=== PATIENT | male | born 1970 | race Caucasian/White ===

== ENCOUNTER → 2019-04-24 | Outpatient (CLI) | payer OTHER ==
[2019-04-24 10:43] LABS: Basophils # (A) 0.1 k/uL (0-0.2); Basophils % (A) 1 %; Eosinophils # (A) 0.2 k/uL (0-0.7); Eosinophils % (A) 2 %; HCT 48.9 % (39.0-53.0); HGB 15.9 gm/dL (13.0-17.5); Lymphocytes # (A) 2.5 k/uL (1.0-4.8); Lymphocytes % (A) 33 %; MCH 29.7 pg (25.0-35.0); MCHC 32.6 g/dL (31.0-37.0); MCV 91.2 fL (80.0-100.0); Mean Platelet Volume 6.6; Monocytes # (A) 0.5 k/uL (0-1.0); Monocytes % (A) 6 %; Neutrophils # (A) 4.3 k/uL (1.3-7.7); Neutrophils % (A) 56 %; Platelet Count 334 k/uL (150-450); RBC 5.36 m/uL (4.30-5.90); RDW 12.8 % (11.5-15.5); WBC 7.7 k/uL (3.8-10.6)
[2019-04-24 16:14] LABS: African American GFR (CKD) 124.2 (60.0-200.0); Anion Gap 10.1 mmol/L (4.00-12.00); BUN/Creat Ratio 13.75 Ratio (12.00-20.00); Calcium 9.6 mg/dL (8.7-10.3); Carbon Dioxide 26.9 mmol/L (21.6-31.8); Chol/HDL Ratio 5.18; LDL Cholesterol,Calculated 175.2 mg/dL (0.0-131.0); Non-African American GFR(CKD) 107.1 (60.0-200.0); Potassium 4.2 mmol/L (3.5-5.5); VLDL Calculation 29.8 mg/dL (5.00-40.00)
== END | disposition home or self-care (01) ==
LOC: LABWHC1 09:50
PROVIDERS: ATTEND Family Medicine
DX: Z00.00 Encounter for general adult medical examination without abnormal findings (principal); I10 Essential (primary) hypertension
CPT/HCPCS: 36415; 80048; 80061; 84450; 84460; 85025

== ENCOUNTER → 2021-05-08 | Outpatient (CLI) | payer OTHER ==
--- NOTE | 2021-05-08 13:39 | ECHOS ---
STRESS ECHOCARDIOGRAM DATE OF STUDY: 05/08/2021 INDICATIONS: Chest pain. BASELINE HEART RATE: 79 BASELINE BLOOD PRESSURE: 136/77. MAXIMUM HEART RATE: 173 MAXIMUM BLOOD PRESSURE: 193/75 85% MPHR: 146 100% MPHR: 172 METS: 9.3 MAXIMUM STAGE REACHED: IV TOTAL EXERCISE TIME: 11 min CLINICAL INFORMATION: STRESS DATA: Pre-testing physical examination showed a heart rate of 79, pressure 136/77 mmHg. Baseline EKG showed sinus mechanism. The patient exercised on the treadmill according to Hugo protocol for a total of 11 minutes and achieved 9.3 METS. Max heart rate was 173, which is about 120% of maximum predicted heart rate and maximum blood pressure was 193/75 mmHg. Clinically the patient did not have any symptoms. The EKG did not show any significant ST or T-wave abnormalities concerning for ischemia. Echocardiogram images from parasternal long axis view, parasternal short axis view, apical 4-chamber and apical 2-chamber views were obtained as the baseline images at the peak of the heart rate as well as on recovery. The echocardiogram images showed good augmentation in the left ventricular systolic function without any evidence of wall motion abnormalities concerning for ischemia. CONCLUSION: 1. Excellent exercise tolerance. 2. Normal EKG in response to exercise. 3. Normal echocardiogram in response to exercise. 4. Essentially normal stress echo for the patient. MMODL / IJN: [id number] /
== END | disposition home or self-care (01) ==
LOC: RADNMMAIN 09:04
PROVIDERS: ATTEND Family Medicine
DX: R07.9 Chest pain, unspecified (principal)
CPT/HCPCS: 93351

== ENCOUNTER → 2024-09-26 | Outpatient (CLI) | payer OTHER ==
--- NOTE | 2024-09-26 16:59 | P.SLEEP ---
History of Present Illness H&P Date: 09/26/24 53-year-old male patient presenting to the sleep center due to concerns of sleep apnea. The patient has excessive hypersomnia and sleepiness and his current Carmine score is at 22. 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 The patientnd [place] has loud snoring. He quits breathing on multiple occasions at night. He is unable to sleep on his back. He sleeps on his side and his sleep becomes more fragmented while sleeping on his back. He wakes up in the morning not refreshed and he feels excessively tired and sleepy. 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 He hears himself snoring. He goes to bed at around 9 PM and gets out of bed at 4:30 AM in the morning. On weekends, he sleeps till 7 or 8 AM in the morning. He is a mouth breather. He has occasional dry mouth. He wakes up frequently gasping for air. He also has some nocturia where he wakes up at least twice in the middle of the night to urinate. No recent weight gain or weight loss. No sleep paralysis. No hallucinations. No cataplexy. No anxi ety. No depression. He has hypertension and his blood pressure has been difficult to control and the patient is on 3 different antihypertensive medications for now. He drinks 2 cups of coffee in the morning. He drinks several drinks up to 5 after coming back from work. He drinks beer and whiskey. He has undergone previous tonsillectomy. No history of head trauma. No seizure activity. No congestion or heart failure. No atrial fibrillation. Review of Systems Constitutional: Reports daytime sleepiness, Reports fatigue, Reports lethargy Eyes: denies as per HPI, denies blurred vision, denies bulging eye, denies decreased vision, denies diplopia, denies discharge, denies dry eye, denies irritation, denies itching, denies pain, denies photophobia, denies loss of peripheral vision, denies loss of vision, denies tunnel vision/blind spots Ears: deny: decreased hearing, ear discharge, earache, tinnitus Ears, nose, mouth and throat: Reports as per HPI Breasts: absent: as per HPI, gynecomastia Cardiovascular: Reports as per HPI Respiratory: Reports snoring Gastrointestinal: Reports as per HPI Genitourinary: Reports as per HPI Musculoskeletal: absent: ankle pain, ankle stiffness, ankle swelling, as per HPI, elbow pain, elbow stiffness, elbow swelling, foot pain, foot stiffness, foot swelling, hand pain, hand stiffness, hand swelling, hip pain, hip stiffness, hip swelling, knee pain, knee stiffness, knee swelling, shoulder pain, shoulder stiffness, shoulder swelling, wrist pain, wrist stiffness, wrist swelling Integumentary: Reports as per HPI Neurological: Reports as per HPI Psychiatric: Reports change in sleep habits, Reports hypersomnia, Reports sleep disturbances Hematologic/Lymphatic: Reports as per HPI Allergic/Immunologic: Reports as per HPI Past Medical History Past Medical History: Hyperlipidemia, Hypertension Past Surgical History: Hernia Repair, Tonsillectomy Medications and Allergies Home Medications and Allergies Comment(s): Hydrochlorothiazide, Celexa, losartan, Prilosec and amlodipine. Exact doses are not known. Physical Exam Blood pressure is 137/87, pulse is 84, respirations 16, weight is 229, body mass index is 34.8 pulse ox on room air is 97%. height is 5 feet and 8 inches. The patient appeared well nourished and normally developed. Vital signs as documented. Head exam is unremarkable. No scleral icterus or corneal arcus noted. Neck is without jugular venous distension, thyromegaly, or carotid bruits. Carotid upstrokes are brisk bilaterally. Mallampati class I Lungs are clear to auscultation and percussion. Cardiac exam reveals the PMI to be normally sized and situated. Rhythm is regular. First and second heart sounds normal. No murmurs, rubs or gallops. Abdominal exam reveals normal bowel sounds, no masses, no organomegaly and no aortic enlargement. Extremities are nonedematous and both femoral and pedal pulses are normal. Examination of the skin revealed no evidence of significant rashes, suspicious appearing nevi or other concerning lesions. Neurologically, the patient is awake and alert and the patient does not have any focal neurological deficit. Cranial nerves are essentially intact. Assessment and Plan Plan: Chronic hypersomnia with an Carmine score of 22, high clinical suspicion for obstructive sleep apnea Loud snoring. The patient had undergone previous tonsillectomy. Sleep fragmentation Obesity with a BMI of 34.8 Alcohol consumption in the order of 5-8 drinks (beer and whiskey) Hypertension, currently on 3 different antihypertensive medications. Hyperlipidemia Acid reflux Plan High clinical suspicion for obstructive sleep apnea Avoid driving especially when feeling drowsy or sleepy Avoid any sleep insufficiency Maintain good sleep hygiene measures Maintain regular sleep schedule and extend sleep hours is much as possible to an average of 8 to 9 hours/day Avoid alcohol drinking at least 3 hours prior to going to bed Encourage weight loss Monitor blood pressure Proceed with a screening polysomnography and treat the patient accordingly. Sleep Note - Sleep Note Sleep Note: Temperature: Pulse Rate: Respiratory Rate: Blood Pressure: SpO2: Height: Weight: BMI: Neck Circumference:
== END ==
LOC: 3 N SLEEP 15:49
PROVIDERS: ATTEND Internal Medicine Critical Care Medicine
DX: G47.33 Obstructive sleep apnea (adult) (pediatric) (principal); G47.10 Hypersomnia, unspecified; I10 Essential (primary) hypertension; E78.5 Hyperlipidemia, unspecified; K21.9 Gastro-esophageal reflux disease without esophagitis; R06.83 Snoring; E66.9 Obesity, unspecified; Z68.34 Body mass index [BMI] 34.0-34.9, adult
CPT/HCPCS: 99211

== ENCOUNTER 2024-10-11 19:56 | Outpatient (CLI) | payer OTHER ==
--- NOTE | 2024-10-18 22:20 | P.PCN ---
Date of Procedure: 10/11/24 Operative Findings: Polysomnography report Date of service is 10/11/2024 History 53-year-old male patient presenting to the sleep center due to concerns of sleep apnea. The patient has excessive hypersomnia and sleepiness and his current Houston score is at 22. 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 He has loud snoring. He quits breathing on multiple occasions at night. He is unable to sleep on his back. He sleeps on his side and his sleep becomes more fragmented while sleeping on his back. He wakes up in the morning not refreshed and he feels excessively tired and sleepy. 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 He hears himself snoring. He goes to bed at around 9 PM and gets out of bed at 4:30 AM in the morning. On weekends, he sleeps till 7 or 8 AM in the morning. He is a mouth breather. He has occasional dry mouth. He wakes up frequently gasping for air. He also has some nocturia where he wakes up at least twice in the middle of the night to urinate. No recent weight gain or weight loss. No sleep paralysis. No hallucinations. No cataplexy. No anxiety. No depression. He has hypertension and his blood pressure has been difficult to control and the patient is on 3 different antihypertensive medications for now. He drinks 2 cups of coffee in the morning. He drinks several drinks up to 5 after coming back from work. He drinks beer and whiskey. He has undergone previous tonsillectomy. No history of head trauma. No seizure activity. No congestion or heart failure. No atrial fibrillation. Physical findings Weight is 229 with a BMI of 34.8 Technical description The patient was studied using a standard complex polysomnography protocol that included recording of the Lead II EKG, Central, occipital and frontal EEG, right and left outer canthus EOG, submental EMG, right and left anterior tibialis EMG, respiratory airflow by thermocouple and or pressure/flow transducer, respiratory efforts by abdominal and thoracic PVDF belts, oxygen saturation by cable oximetry. Position by observation synchronized the PSG. Equipment used: [employer]. Sleep architecture The total recording duration was for 23.0 minutes. The total sleep time was 353 minutes. The wake after sleep onset time was 29 minutes. The overall sleep efficiency was 83.5%. The latency to sleep onset was 34 minutes and the latency to REM sleep was 88.5 minutes. The total arousal index was 8.7. The sleep architecture was characterized by 70.6% stage I, 49.7% stage II, 0.4% stage III, and a total of 32.3% REM sleep Sleep respiratory urinalysis The patient had a total of 32 obstructive events of which 0 were obstructive apneas, 0 were mixed apneas and 32 were obstructive hypopneas. The resulting AHI was 5.3. No central apneas were noted. Disease was slightly worse during REM sleep with AHI of 11.6 during REM. Oxygenation analysis The baseline pulse ox was 95% while awake. Lowest oxygen saturation was 79% and the patient spent approximately 3.3 minutes of the sleep time below pulse ox of 89% accounting for 0.8% of the total recording time Arousal events There was a total of 51 arousals with an index of 8.7. Respiratory arousal index was 0.5 Periodic movement events A total of 305 periodic limb movement activity during sleep with an index of 51.8. There was also 3 periodic limb movement activity with arousals with a PLM arousal index of 0.5 Cardiac summary Average heart rate was 72 with a minimum heart rate of 66 and a maximum heart of 76 Assessment Mild obstructive sleep apnea with an AHI of 5.3, worse during REM sleep. AHI during REM was 11.6. No significant nocturnal oxygen desaturations Chronic hypersomnia with an Houston score of 22, and the patient sleepiness is out of proportion to the severity of his sleep apnea. Adequate sleep architecture Reduced sleep efficiency Loud snoring. Obesity with a BMI of 34.8 Alcohol consumption in the order of 5-8 drinks (beer and whiskey) Hypertension, currently on 3 different antihypertensive medications. Hyperlipidemia Acid reflux Plan This is a case of mild obstructive sleep apnea. I am quite surprised by the extent of sleepiness and the patient is encountering knowing that the sleep apnea severity is mild with an overall AHI of 5.3 and some worsening during REM sleep. Will discuss findings with the patient. Should be able to offer CPAP therapy if the patient is willing to give it a try and assess his clinical response to CPAP. My overall impression is that CPAP therapy may have a limited value knowing this his disease severity is mild. Avoid driving especially when feeling drowsy or sleepy Avoid any sleep insufficiency Maintain good sleep hygiene measures Maintain regular sleep schedule and extend sleep hours is much as possible to an average of 8 to 9 hours/day Avoid alcohol drinking at least 3 hours prior to going to bed Encourage weight loss Monitor blood pressure Will discuss those findings with the patient will make further recommendations accordingly.
== END 2024-10-12 05:25 | disposition home or self-care (01) ==
LOC: 3 N SLEEP 19:56
PROVIDERS: ATTEND Internal Medicine Critical Care Medicine
DX: G47.33 Obstructive sleep apnea (adult) (pediatric) (principal); I10 Essential (primary) hypertension; E78.5 Hyperlipidemia, unspecified; E66.9 Obesity, unspecified; K21.9 Gastro-esophageal reflux disease without esophagitis; Z68.34 Body mass index [BMI] 34.0-34.9, adult; Z99.89 Dependence on other enabling machines and devices
CPT/HCPCS: 95810